=== PATIENT | male | born 2000 | race African-American/Black ===

== ENCOUNTER 2021-11-02 14:48 | Emergency (ER) | payer SELFPAY ==
[~2021-11-02] VITALS: Ht 195.6 cm; Wt 67.2 kg
[2021-11-02 17:50] VITALS: BP 130/68
== END 2021-11-02 18:25 | disposition home or self-care (01) ==
LOC: ER 14:48
DX: S16.1XXA Strain of muscle, fascia and tendon at neck level, initial encounter (principal); S29.012A Strain of muscle and tendon of back wall of thorax, initial encounter; S70.02XA Contusion of left hip, initial encounter; Z88.0 Allergy status to penicillin; V43.52XA Car driver injured in collision with other type car in traffic accident, initial encounter; Y93.89 Activity, other specified; Y92.410 Unspecified street and highway as the place of occurrence of the external cause; Y99.8 Other external cause status
CPT/HCPCS: 70450; 72040; 72070; 72125; 73502